=== PATIENT | female | born 1985 | race Hispanic/Latino ===

== ENCOUNTER 2021-10-22 08:55 | Outpatient (CLI) | payer OTHER | END 2021-10-22 08:56 | disposition home or self-care (01) | LOC: CSHULT 08:55 | PROVIDERS: ATTEND Family Medicine | DX: O09.522 Supervision of elderly multigravida, second trimester (principal) | CPT/HCPCS: 76805 ==

== ENCOUNTER 2022-03-02 05:22 | Inpatient (IN) | payer MEDICAID, OTHER, SELFPAY ==
[2022-03-02] MEDS ORDERED: Bicitra 30 ML UDCUP PO PRN (06:12)
[2022-03-02] MEDS ORDERED: hydrALAZINE 20 MG/ML VIAL SLOW IVP PRN ×2 (06:12→12:48)
[2022-03-02] MEDS ORDERED: Azithromycin 500 MG in Sodium Chloride 0.9% 250 ML 250 ML IVPB SCH (06:12)
[2022-03-02] MEDS ORDERED: Lactated Ringer's 1,000 ML IV SCH (06:12)
[2022-03-02] MEDS ORDERED: Promethazine HCl 25 MG/ML VIAL IM PRN ×3 (06:12→12:48)
[2022-03-02] MEDS ORDERED: Famotidine/PF 20 mg/2ml Vial SLOW IVP PRN (06:12)
[2022-03-02] MEDS ORDERED: CEFAZOLIN 2 GM in Sodium Chloride 0.9% 100 ML IVPB SCH (06:12)
[2022-03-02] MEDS ORDERED: Ondansetron PF 4 MG/2 ML Vial IVP PRN ×3 (06:12→12:48)
[2022-03-02 06:20] VITALS: BMI 32.9
[2022-03-02] MEDS ORDERED: Ketorolac Tromethamine 30 MG/ML VIAL IVP PRN (06:53)
[2022-03-02] MEDS ORDERED: Meperidine HCl/PF 25 MG/ML VIAL SLOW IVP PRN (06:53)
[2022-03-02] MEDS ORDERED: Naloxone HCl 0.4 mg/ml Vial IVP PRN ×2 (06:53)
[2022-03-02] MEDS ORDERED: Naloxone HCl 0.4 mg/ml Vial IV PRN (06:53)
[2022-03-02] MEDS ORDERED: Ondansetron HCl/PF 4 MG/2 ML Vial IVP PRN (06:53)
[2022-03-02] MEDS ORDERED: Promethazine HCl 25 MG SUPP PR PRN (06:53)
[2022-03-02] MEDS ORDERED: HYDROmorphone 2 MG/ML VIAL SLOW IVP PRN (06:53)
[2022-03-02] MEDS ORDERED: Moisturizing Cream (Eucerin) 113 GM JAR TOP PRN (06:53)
[2022-03-02] MEDS ORDERED: diphenhydrAMINE 50 MG/ML VIAL IVP PRN (06:53)
[2022-03-02] MEDS ORDERED: Fentanyl 100 MCG/2 ML VIAL SLOW IVP PRN (06:53)
[2022-03-02 06:57] LABS: Mean Corpuscular Hemoglobin 28.6 pg (27.0-33.0); Mean Platelet Volume 12.2 fl (7.4-10.4); Platelet Count 161 10x3/uL (150-450); RBC Distribution Width 15.2 % (11.5-14.5); Red Blood Cell (RBC) Count 4.55 10x6/uL (3.90-5.03); White Blood Cell (WBC) Count 5.3 10x3/uL (3.5-10.5)
[2022-03-02] MEDS ORDERED: Communication Order-Pharmacy FS SCH (07:00)
[2022-03-02] MEDS ORDERED: Ketorolac Tromethamine 30 MG/ML VIAL IVP SCH ×2 (07:00→14:00)
[2022-03-02] MEDS ORDERED: Morphine PF 10 MG/10 ML VIAL ONE (07:07)
[2022-03-02] MEDS ORDERED: Ondansetron PF 4 MG/2 ML Vial ONE (07:08)
[2022-03-02] MEDS ORDERED: Phenylephrine 10 MG/ML VIAL ONE (07:08)
[2022-03-02] MEDS ORDERED: Oxytocin 10 UNITS/ML VIAL ONE ×2 (07:08→08:39)
[2022-03-02] MEDS ORDERED: Fentanyl 100 MCG/2 ML VIAL ONE (07:08)
[2022-03-02 07:24] LABS: HBSAg Index 0.19 S/CO (0-0.99); Hep B Surf Ag Non-Reactive S/CO (NonReactive)
[2022-03-02 07:43] LABS: SARS-CoV-2 NAA Rapid Test Not Detected (NotDetected)
[2022-03-02 07:44] LABS: Syphilis Antibody Nonreactive (Nonreactive); Syphilis Antibody Index 0.09 S/CO (<1.00 Non-Reactive)
[2022-03-02] MEDS ORDERED: Dexamethasone 4 mg/ml Vial ONE (08:48)
[2022-03-02] MEDS ORDERED: diphenhydrAMINE 50 MG/ML VIAL ONE (08:48)
[2022-03-02] MEDS ORDERED: Ketorolac Tromethamine 30 MG/ML VIAL ONE (08:52)
[2022-03-02] MEDS ORDERED: Boostrix 0.5 ML (Tdap) VIAL (>/=7 yrs of age) IM ONE (12:48)
[2022-03-02] MEDS ORDERED: Bisacodyl 10 MG SUPP PR PRN (12:48)
[2022-03-02] MEDS ORDERED: diphenhydrAMINE 25 MG CAP PO PRN (12:48)
[2022-03-02] MEDS ORDERED: Meperidine HCl/PF 25 MG/ML VIAL IM PRN (12:48)
[2022-03-02] MEDS ORDERED: Lanolin Ointment 7 GM TUBE TOP PRN (12:48)
[2022-03-02] MEDS ORDERED: Ferrous Sulfate 325 MG TAB PO SCH (13:00)
[2022-03-02] MEDS ORDERED: Docusate 100 MG CAP PO SCH (13:00)
[2022-03-02] MEDS: Docusate 100 MG CAP PO SCH (20:50)
[2022-03-02] MEDS: Ferrous Sulfate 325 MG TAB PO SCH (20:51)
[2022-03-02] MEDS: Ketorolac Tromethamine 30 MG/ML VIAL IVP SCH (22:29)
[2022-03-03] MEDS: Ketorolac Tromethamine 30 MG/ML VIAL IVP SCH ×2 (03:55→12:55)
[2022-03-03 05:40] LABS: Hemoglobin 11.5 g/dL (12.0-15.5); Mean Corpuscular HGB CONC 33.7 g/dL (32.0-36.0); Mean Corpuscular Hemoglobin 28.5 pg (27.0-33.0); Mean Corpuscular Volume 84.4 fl (81.6-98.3); Mean Platelet Volume 12.6 fl (7.4-10.4); Platelet Count 139 10x3/uL (150-450); RBC Distribution Width 15.4 % (11.5-14.5); Red Blood Cell (RBC) Count 4.04 10x6/uL (3.90-5.03); White Blood Cell (WBC) Count 7.3 10x3/uL (3.5-10.5)
[2022-03-03] MEDS: Docusate 100 MG CAP PO SCH ×2 (08:51→21:17)
[2022-03-03] MEDS: HYDROcodone/Acetaminophen 5/325 mg Tablet PO PRN ×3 (08:51→21:17)
[2022-03-03] MEDS: Ferrous Sulfate 325 MG TAB PO SCH (11:38)
[2022-03-03] MEDS: Ibuprofen 800 MG TAB PO SCH (15:19)
[2022-03-03] MEDS: Simethicone Chewable 80 MG TAB PO PRN ×2 (15:23→21:22)
[2022-03-04] MEDS: Ibuprofen 800 MG TAB PO SCH ×4 (00:09→23:33)
[2022-03-04] MEDS: Ferrous Sulfate 325 MG TAB PO SCH ×2 (03:57→08:44)
[2022-03-04] MEDS: Simethicone Chewable 80 MG TAB PO PRN ×2 (05:50→21:53)
[2022-03-04] MEDS: HYDROcodone/Acetaminophen 5/325 mg Tablet PO PRN ×3 (05:50→20:22)
[2022-03-04] MEDS: Docusate 100 MG CAP PO SCH ×2 (08:43→20:22)
[2022-03-05] MEDS: HYDROcodone/Acetaminophen 5/325 mg Tablet PO PRN ×2 (02:06→06:55)
[2022-03-05] MEDS: Ferrous Sulfate 325 MG TAB PO SCH ×2 (04:04→08:25)
[2022-03-05 08:25] VITALS: BP 113/66; TEMP 98.4
[2022-03-05] MEDS: Docusate 100 MG CAP PO SCH (08:35)
[2022-03-05] MEDS: Ibuprofen 800 MG TAB PO SCH (08:35)
== END 2022-03-05 11:00 | disposition home or self-care (01) | DRG 788 ==
LOC: CSHLD 05:22 → CSHPP 12:35
PROVIDERS: ADMIT Family Medicine; ATTEND Family Medicine
PROC: 10D00Z1 Extraction of Products of Conception, Low, Open Approach (ICD-10-PCS; principal; 2022-03-02)
DX: O34.211 Maternal care for low transverse scar from previous cesarean delivery (principal); O24.420 Gestational diabetes mellitus in childbirth, diet controlled; Z20.822 Contact with and (suspected) exposure to COVID-19; Z3A.39 39 weeks gestation of pregnancy; Z37.0 Single live birth
CPT/HCPCS: 36415; 51702; 85027; 86780; 86850; 86900; 86901; 87340; J1100; J1200; J1885; J2274; J2370; J2405; J2590; J3010; U0002